=== PATIENT | female | born 1975 | race Caucasian/White ===

== ENCOUNTER 2020-12-29 08:53 | Outpatient (CLI) | payer OTHER, SELFPAY ==
--- NOTE | ~2020-12-29 | MM_ITS ---
EXAMINATION: MM screening [facility] BI w marla HISTORY: Screening mammogram TECHNIQUE: Craniocaudal and mediolateral oblique 3-D tomosynthesis images were obtained and synthetic 2-D images were generated. CAD analysis was submitted and interpreted. COMPARISON: 09/25/2019, 02/16/2018, 11/17/2016 BREAST PARENCHYMAL COMPOSITION: The breasts are heterogeneously dense, which may obscure small masses . FINDINGS: There is no evidence of suspicious mass, calcification, or architectural distortion to sugg est malignancy in either breast. There has been no suspicious interval change. IMPRESSION: 1. No mammographic evidence of malignancy. 2. Recommend routine screening mammography in one year. BI-RADS Category 1: Negative Reviewed, dictated and finalized at location A. HASE ANALYST
== END 2020-12-29 08:54 | disposition home or self-care (01) ==
PROVIDERS: PCP Family Medicine; Visit Provider Obstetrics & Gynecology
DX: Z12.31 Encounter for screening mammogram for malignant neoplasm of breast (principal)
CPT/HCPCS: 77063; 77067

== ENCOUNTER 2022-08-01 07:50 | Emergency (ER) | payer OTHER, SELFPAY ==
[2022-08-01] VITALS (7 sets, daily range): BP systolic 106–131; BP diastolic 65–77; PULSE 86; RESP 14; O2SAT 100
--- NOTE | 2022-08-01 08:27 | ED.NAVMDI ---
HPI - Nausea/Vomiting/Diarrhea General Chief complaint: Nausea/Vomiting/Diarrhea Stated complaint: N/V AFTER DRINKING LAST NIGHT Time Seen by Provider: 08/01/22 07:59 History of Present Illness HPI Narrative: Patient is a 46-year-old female who presents ER with nausea and vomiting. She has been vomiting throughout the night. She had gone out drinking alcohol last night and this may have contributed. No known sick contacts. No diarrhea. No fevers chills or sweats. Has found no alleviating factors. Related Data Home Medications Medication Instructions Recorded Confirmed docusate sodium 100 mg capsule 100 mg PO DAILY 03/15/22 03/15/22 (Colace) polyethylene glycol 3350 17 17 g PO DAILY 03/15/22 03/15/22 gram/dose oral powder (Miralax) Allergies Allergy/AdvReac Type Severity Reaction Status Date / Time ciprofloxacin Allergy Unknown Unknown Verified 03/15/22 08:59 morphine Allergy Unknown Unknown Verified 03/15/22 08:59 Quinolones Allergy Unknown Unknown Verified 03/15/22 08:59 CIPRO MORPHINE Allergy Unknown Unknown Uncoded 03/15/22 08:59 DENIES ANY ALLERGIES Allergy Unknown Unknown Uncoded 03/15/22 08:59 Review of Systems Review of Systems: All systems reviewed & are unremarkable except as noted in HPI and below Constitutional: Constitutional: Denies chills, Denies fatigue and Denies fever(s) Cardiovascular: Cardiovascular: Denies chest pain and Denies rapid heart rate Gastrointestinal: Gastrointestinal: Denies abdominal pain, Denies diarrhea, Reports nausea and Reports vomiting Genitourinary: Genitourinary: Denies nocturia and Denies dysuria [facility] Past Medical History Medical History (Updated 08/01/22 @ 09:59 by Lester Gonzalez MD) Adult BMI 27.0-27.9 kg/sq m No pertinent past medical history Surgical History Surgical History (Updated 08/01/22 @ 08:28 by Lester Gonzalez MD) History of section Family History Family History Mother Family history of Hodgkin's lymphoma Other Family history of malignant neoplasm of male breast Family history of malignant neoplasm of ovary Social History Social History Alcohol intake: never Substance use: never Gender identity (if verbalized by the patient): Female Exam Narrative: GENERAL: Uncomfortable-appearing, well-nourished, and actively vomiting. HEAD: Normocephalic, atraumatic. EYES: PERRLA and EOMI. CHEST: Clear to auscultation. No respiratory distress. HEART: Regular rate and rhythm. Normal peripheral pulses. ABDOMEN: Soft, nontender, nondistended. EXTREMITIES: Normal range of motion. No edema. SKIN: Warm, dry, no rash. NEURO: Alert and oriented x3. PSYCH: Normal mood and affect. Course Course Emergency Course: Patient hydrated and given Zofran. Tolerated p.o. challenge. Discharged home with antiemetics. Vital Signs Vital signs: Vital Signs Pulse Rate 86 08/01/22 07:55 Respiratory Rate 14 08/01/22 07:55 Blood Pressure 131/67 08/01/22 07:55 Pulse Oximetry 100 08/01/22 07:55 Oxygen Delivery Room Air 08/01/22 07:55 Pulse Rate 86 08/01/22 07:55 Respiratory Rate 14 08/01/22 07:55 Blood Pressure 108/75 08/01/22 09:15 Pulse Oximetry 100 08/01/22 09:15 Oxygen Delivery Room Air 08/01/22 07:55 MDM - Nausea/Vomiting/Diarrhea Lab Data Result diagrams: 08/01/22 08:32 08/01/22 08:32 Labs: Lab Results 08/01/22 08/01/22 Range/Units 08:32 08:32 WBC 11.4 H (4.5-10.0) K/mm3 RBC 4.44 (4.2-5.4) M/mm3 Hgb 13.4 (12.0-15.0) g/dL Hct 40.0 (37.0-47.0) % MCV 90.1 (80-100) fl MCH 30.2 (26-34) pg MCHC 33.5 (32-36) g/dl RDW 13.4 (11.5-14.5) % Plt Count 340 (150-375) k/mm3 MPV 10.4 (7.4-10.4) fl Immature Gran % (Auto) 0.4 (0-0.5) % Neut % (Auto) 83.4 H (45.5-73.1) % Lymph % (Auto) 11.1 L (
[2022-08-01] MEDS: SODIUM CHLORIDE 0.9% IV 1,000 ML 999 ML IV CONT (08:33)
[2022-08-01] MEDS: ONDANSETRON INJ 4 MG/2 ML VIAL IV PUSH (08:33)
[2022-08-01 08:40] LABS: Basophils Absolute Auto 0.1 K/mm3 (0.0-0.1); Basophils Percent Auto 0.4 % (0.2-1.2); Eosinophils Percent Auto 0.3 % (0-4.4); Hemoglobin 13.4 g/dL (12.0-15.0); Immature Granulocyte Absolute 0.04 K/mm3 (0.00-0.031); Immature Granulocyte Percent A 0.4 % (0-0.5); Lymphocytes Absolute Auto 1.27 K/mm3 (0.9-3.2); Lymphocytes Percent Auto 11.1 % (18.3-44.2); Mean Corpuscular HGB Conc 33.5 g/dl (32-36); Mean Corpuscular Hemoglobin 30.2 pg (26-34); Mean Corpuscular Volume 90.1 fl (80-100); Mean Platelet Volume 10.4 fl (7.4-10.4); Monocytes Absolute Auto 0.5 K/mm3 (0.1-0.6); Monocytes Percent Auto 4.4 % (2.6-8.5); Neutrophils Absolute Auto 9.5 K/mm3 (1.3-6.7); Neutrophils Percent Auto 83.4 % (45.5-73.1); Platelet Count Result 340 k/mm3 (150-375); Red Blood Count 4.44 M/mm3 (4.2-5.4); Red Cell Distribution Width 13.4 % (11.5-14.5); White Blood Count 11.4 K/mm3 (4.5-10.0)
[2022-08-01 08:52] LABS: Alanine Aminotransferase 23 U/L (6-35); Albumin Level 4.7 g/dL (3.5-5.1); Alkaline Phosphatase 62 U/L (38-126); Anion Gap 12 mmol/L (8-16); Aspartate Amino Transferase 28 U/L (14-36); Bilirubin,Total 0.6 mg/dL (0.2-1.3); Blood Urea Nitrogen 14 mg/dL (7-17); Calcium 9.1 mg/dL (8.4-10.2); Carbon Dioxide 22 mmol/L (22-30); Chloride 107 mmol/L (98-107); Estimated CRCL calculation 111 ml/min; Estimated Glomerular Filt Rate > 60; Glucose 112 mg/dL (65-110); Lipase 66 U/L (23-300); Potassium 3.7 mmol/L (3.4-5.0); Sodium 141 mmol/L (137-145)
--- NOTE | 2022-08-01 09:21 | PC.NURSE ---
Patient reports she is feeling better at this time. Saltine crackers and Thelma Mist given to patient for PO challenge.
--- NOTE | 2022-08-01 09:58 | PC.NURSE ---
Patient finished 4 saltines and a Thelma Mist and reports she feels better. Doesn't feel like she is going to throw up anymore.
== END 2022-08-01 10:30 | disposition home or self-care (01) ==
PROVIDERS: Emergency Provider Emergency Medicine; PCP Family Medicine
DX: R11.2 Nausea with vomiting, unspecified (principal)
CPT/HCPCS: 36415; 80053; 83690; 85025; 96361; 96374; 99284; J2405; J7030

== ENCOUNTER 2022-10-26 08:25 | Outpatient (CLI) | payer OTHER, SELFPAY ==
--- NOTE | ~2022-10-26 | MM_ITS ---
EXAMINATION: MM screening [facility] w marla HISTORY: Screening TECHNIQUE: Craniocaudal and mediolateral oblique 3-D tomosynthesis images were obtained and synthetic 2-D images were generated. CAD analysis was submitted and interpreted. COMPARISON: Comparison to multiple prior studies sequentially, with oldest reviewed study dated 08/08. BREAST PARENCHYMAL COMPOSITION: The breasts are extremely dense, which lowers the sensitivity of mamm ography FINDINGS: There is no evidence of suspicious mass, calcification, or architectural distortion to sugg est malignancy in either breast. There has been no suspicious interval change. IMPRESSION: 1. No mammographic evidence of malignancy. 2. Recommend routine screening mammography in one year. BI-RADS Category 1: Negative Reviewed, dictated and finalized at location A. [employer] SCI[employer] DEAN
== END 2022-10-26 08:26 | disposition home or self-care (01) ==
LOC: ANHIMG 08:25
PROVIDERS: PCP Family Medicine; Visit Provider Obstetrics & Gynecology
DX: Z12.31 Encounter for screening mammogram for malignant neoplasm of breast (principal)
CPT/HCPCS: 77063; 77067

== ENCOUNTER 2024-01-14 11:08 | Outpatient (CLI) | payer BC, SELFPAY ==
--- NOTE | ~2024-01-14 | MM_ITS ---
EXAMINATION: MM screening [facility] w marla HISTORY: Screening mammogram TECHNIQUE: Craniocaudal and mediolateral oblique 3-D tomosynthesis images were obtained and synthetic 2-D images were generated. CAD analysis was submitted and interpreted. COMPARISON: 10/26/2022, 12/29/2020 bilateral screening mammogram examinations BREAST PARENCHYMAL COMPOSITION: The breasts are heterogeneously dense, which may obscure small masses . FINDINGS: There is no evidence of suspicious mass, calcification, or architectural distortion to sugg est malignancy in either breast. There has been no suspicious interval change. IMPRESSION: 1. No mammographic evidence of malignancy. 2. Recommend routine screening mammography in one year. BI-RADS Category 1: Negative Reviewed, dictated and finalized at location A. PACKER
== END 2024-01-14 11:09 | disposition home or self-care (01) ==
LOC: ANHIMG 11:10
PROVIDERS: PCP Family Medicine; Visit Provider Obstetrics & Gynecology
DX: Z12.31 Encounter for screening mammogram for malignant neoplasm of breast (principal)
CPT/HCPCS: 77063; 77067